=== PATIENT | male | born 1960 | race Two or more races ===

== ENCOUNTER 2017-07-09 14:54 | Emergency (ER) | payer MEDICARE, MEDICAID ==
[~2017-07-09] VITALS: Ht 175.3 cm; Wt 80.7 kg
[~2017-07-09 14:54] MED LIST: ALPR1TAB2 PO; DOLU50TA OR; LAMO100T3 PO; LAMO25TA3 PO; NOR10T PO; OXYC30TA50 PO; PREG100C PO; PROP60CA8 PO; RIZA10TA12 PO; ROPI0.5T18 PO; TOPI15CA10 PO; [UNRECOGNIZED DRUG - CODE] PO
[2017-07-09 15:59] LABS: Basophils # (auto) 0 uL; Basophils % (auto) 0.4 % (0.0-2.0); Eosinophils # (auto) 0.2 uL; Hematocrit 37.8 % (41.0-53.0); Hemoglobin 13.1 g/dL (13.5-17.5); Lymphocytes # (auto) 2.1 uL; Lymphocytes % (auto) 35.3 % (10.0-50.0); Mean Corpuscular Hemoglobin 30.3 pg (28.0-32.0); Mean Corpuscular Hgb Conc. 34.7 g/dL (32.0-36.0); Mean Corpuscular Volume 87.3 fL (80.0-100.0); Mean Platelet Volume 6.4 fL (6.9-10.8); Monocytes # (auto) 0.5 uL; Monocytes % (auto) 7.5 % (0.0-12.0); Neutrophils # (auto) 3.3 uL; Neutrophils % (auto) 53.8 % (37.0-80.0); Nucleated Red Blood Cells % 0.1 %; Platelet Count (auto) 313 10^3/uL (140-450); White Blood Cell 6.1 10^3/uL (4.4-10.8)
[2017-07-09 16:18] LABS: Albumin 3.6 g/dL (3.4-5.0); BUN/Creatinine Ratio 18.9; Bilirubin, Total 0.3 mg/dL (0.2-1.0); Calcium 8.7 mg/dL (8.5-10.1); Potassium 3.5 mmol/L (3.5-5.1); Total Protein 7.5 g/dL (6.4-8.2)
[2017-07-09 16:57] LABS: Urine Bilirubin Negative (Negative); Urine Blood Negative /uL (Negative); Urine Color Yellow (Yellow); Urine Glucose Normal (Normal); Urine Ketone Negative (Negative); Urine Mucus FEW (None Seen); Urine Nitrite Negative (Negative); Urine RBC 1 /hpf (0 - 3); Urine Urobilinogen Normal (Negative); Urine pH 5.5 (5.0-8.0)
[2017-07-09 17:50] VITALS: BP 160/79
[2017-07-09] MEDS ORDERED: PENICILLIN G BENZ 1200000 UNITS/2 ML SYRG IM ONE (18:30)
== END 2017-07-09 19:42 | disposition home or self-care (01) ==
LOC: ER 14:54
DX: A53.9 Syphilis, unspecified (principal); Z86.73 Personal history of transient ischemic attack (TIA), and cerebral infarction without residual deficits; Z85.828 Personal history of other malignant neoplasm of skin; Z90.49 Acquired absence of other specified parts of digestive tract
CPT/HCPCS: 36415; 80053; 81001; 85025; 96372; 99284; J0561

== ENCOUNTER 2017-07-13 08:13 | Emergency (ER) | payer MEDICARE, MEDICAID ==
[~2017-07-13] VITALS: Ht 175.3 cm; Wt 86.7 kg
[2017-07-13 08:31] VITALS: BP 125/75
== END 2017-07-13 16:39 | disposition left against medical advice (07) ==
LOC: ER 08:13
DX: M54.2 Cervicalgia (principal); Z53.21 Procedure and treatment not carried out due to patient leaving prior to being seen by health care provider

== ENCOUNTER 2017-07-16 07:43 | Emergency (ER) | payer MEDICARE, MEDICAID ==
[~2017-07-16] VITALS: Ht 175.3 cm; Wt 81.6 kg
[2017-07-16 08:05] VITALS: BP 148/82
== END 2017-07-16 17:14 | disposition left against medical advice (07) ==
LOC: ER 07:43
DX: R53.1 Weakness (principal); R51 Headache; R42 Dizziness and giddiness; Z53.21 Procedure and treatment not carried out due to patient leaving prior to being seen by health care provider

== ENCOUNTER 2022-04-25 17:17 | Emergency (ER) | payer MEDICARE, MEDICAID ==
[~2022-04-25] VITALS: Ht 172.7 cm; Wt 100.0 kg
[2022-04-25 17:17] VITALS: BP 164/90
[~2022-04-25 17:17] MED LIST changes: +PROP60CA34 PO; -PROP60CA8 PO
== END 2022-04-25 18:05 | disposition left against medical advice (07) ==
LOC: ER 17:17 → EDBD 17:17 → ER 18:05
DX: R56.9 Unspecified convulsions (principal); R51.9 Headache, unspecified; Z53.21 Procedure and treatment not carried out due to patient leaving prior to being seen by health care provider